=== PATIENT | male | born 1995 ===

== ENCOUNTER 2018-02-14 18:53 | Emergency (ER) | payer SELFPAY ==
[2018-02-14 18:55] VITALS: BP 141/82; PULSE 110; RESP 20; TEMP 98.8; O2SAT 98
[2018-02-14] MEDS ORDERED: SODIUM CHLOR 0.9% 1000 ML INJ 1,000 ML IV SCH (19:49)
[2018-02-14] MEDS ORDERED: SODIUM CHLORIDE 0.9% FLUSH 10 ML FLUSH IV FLUSH PRN (20:00)
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
[2018-02-14 20:09] LABS: AUTOMATED NEUTROPHIL # 1.7 TH/MM3 (1.8-7.7); BASOPHIL # 0.1 TH/MM3 (0-0.2); BASOPHIL % 2.1 % (0.0-2.0); EOSINOPHIL % 0.4 % (0.0-4.0); HEMATOCRIT 49.8 % (39.0-51.0); HEMOGLOBIN 16.8 GM/DL (13.0-17.0); LYMPH % 50.5 % (9.0-44.0); LYMPHOCYTE # 2.1 TH/MM3 (1.0-4.8); MEAN CELL VOLUME 93.9 FL (80.0-100.0); MEAN CORPUSCULAR HEMOGLOBIN 31.7 PG (27.0-34.0); MEAN CORPUSCULAR HGB CONC 33.7 % (32.0-36.0); MEAN PLATELET VOLUME 8.3 FL (7.0-11.0); MONO % 6.6 % (0.0-8.0); MONOCYTE # 0.3 TH/MM3 (0-0.9); NEUT % 40.4 % (16.0-70.0); PLATELET COUNT 229 TH/MM3 (150-450); RED CELL DISTRIBUTION WIDTH 12.6 % (11.6-17.2); WHITE BLOOD COUNT 4.2 TH/MM3 (4.0-11.0)
[2018-02-14 20:29] LABS: CHLORIDE 108 MEQ/L (98-107); SODIUM (NA) 142 MEQ/L (136-145)
[2018-02-14 20:32] LABS: BICARBONATE 24.1 MEQ/L (21.0-32.0); CALCIUM 8.7 MG/DL (8.5-10.1); GLUCOSE,RANDOM 121 MG/DL (74-106); MAGNESIUM 2.2 MG/DL (1.5-2.5)
[2018-02-14 20:33] LABS: BLOOD UREA NITROGEN 4 MG/DL (7-18)
[2018-02-14 20:36] LABS: CREATININE 0.71 MG/DL (0.60-1.30); GLOMERULAR FILTRATION RATE 136 ML/MIN (>89)
[2018-02-14 20:40] LABS: TROPONIN I LESS THAN 0.02 NG/ML (0.02-0.05)
[2018-02-14 20:47] VITALS: O2SAT 98
--- NOTE | 2018-02-14 20:50 | RADRPT ---
EXAM DATE: 02/14/2018 8:07 PM EDT AGE/SEX: 22 years / Male INDICATIONS: Found unresponsive. CLINICAL DATA: This is the patient's initial encounter. Patient reports that signs and symptoms have been present for 1 day and indicates a pain score of Nonresponsive. MEDICAL/SURGICAL HISTORY: Non-responsive. Non-responsive. COMPARISON: No prior exams available for comparison. FINDINGS: The lungs are clear without infiltrate, nodule, or mass. There is no appreciable pleural effusion for technique. Heart and mediastinum are unremarkable. CONCLUSION: No acute cardiopulmonary disease. Electronically signed by: Mickie Varma MD 02/14/2018 8:49 PM EDT
--- NOTE | 2018-02-14 20:50 | RADRPT ---
EXAM DATE: 02/14/2018 8:07 PM EDT AGE/SEX: 22 years / Male INDICATIONS: Altered mental status. CLINICAL DATA: This is the patient's initial encounter. Patient reports that signs and symptoms have been present for 1 day and indicates a pain score of 0/10. MEDICAL/SURGICAL HISTORY: Asthma. Prior head injury None. RADIATION DOSE: 51.54 CTDI (mGy) COMPARISON: No prior exams available for comparison. TECHNIQUE: CT of the head without contrast. Using automated exposure control and adjustment of the mA and/or kV according to patient size, radiation dose was kept as low as reasonably achievable to ob tain optimal diagnostic quality images. FINDINGS: There is no evidence for intracranial hemorrhage, mass effect, mass lesions, edema, or extra-axial fl uid collections. The visualized bony structures appear intact. The ventricles are normal size for t he patient's age. There are no signs of acute infarction for technique. CONCLUSION: Unremarkable study. Electronically signed by: Mickie Varma MD 02/14/2018 8:48 PM EDT
[2018-02-14 20:57] VITALS: BP 131/65; PULSE 98; RESP 16; O2SAT 98
[2018-02-14] MEDS ORDERED: POTASSIUM CHLORIDE 20 MEQ CONTROLLED RELEASE TAB PO ONE (21:15)
--- NOTE | 2018-02-14 21:50 | EKG ---
Date Performed: 02/14/2018 Time Performed: 20:15:07 PTAGE: 22 years EKG: Sinus rhythm NORMAL ECG NO PREVIOUS TRACING DOCTOR: Harpreet Foote Interpretating Date/Time 02/14/2018 21:48:24
[2018-02-14 23:53] VITALS: BP 103/57
== END 2018-02-14 23:59 | disposition home or self-care (01) ==
LOC: PHED 18:53
DX: F10.129 Alcohol abuse with intoxication, unspecified (principal); S09.90XA Unspecified injury of head, initial encounter; E87.6 Hypokalemia; D72.820 Lymphocytosis (symptomatic); Y90.7 Blood alcohol level of 200-239 mg/100 ml; J45.909 Unspecified asthma, uncomplicated; Z72.0 Tobacco use; X58.XXXA Exposure to other specified factors, initial encounter
CPT/HCPCS: 70450; 71045; 80048; 80307; 83735; 84484; 85025; 93005; 96360; 99285; J7030